=== PATIENT | male | born 1955 | race Caucasian/White ===

== ENCOUNTER → 2016-04-06 | Outpatient (CLI) | payer OTHER ==
[~2016-04-06] MED LIST: AMLO5TAB2 PO; ASPI-482 PO; ATOR40TA PO; BISO1TAB45 PO; BUDE10.2 IH; CLOP75TA PO; QUIN20TA PO; RIVA20TA2 PO; [UNRECOGNIZED DRUG - OTHER]
--- NOTE | 2016-04-07 07:22 | PAIN ---
DATE OF SERVICE: 04/06/2016 INITIAL CONSULTATION CHIEF COMPLAINT: Low back and left lower extremity pain. HISTORY OF PRESENT ILLNESS: This is a 60-year-old male who presents with history of pain for about 2 months, increasing without any specific injury or accident that he is aware of, but suddenly increased with pain where he could not hardly walk. The patient reports he went to bed one night, the pain was there and by the next day, it was much, much worse, he could hardly walk on his left leg, the pain across the back and into the hips. The patient reports it was much better with some steroid treatment. He took orally prednisone 50-100 mg for about a week and at time this helped significantly reduce the pain. The patient reports now the pain is a constant pain, it is throbbing and shooting with tingling and numbness in the left leg, mostly in the posterior gluteus, posterolateral thigh, posterior lower leg, anterior lower leg and into the sole of the foot on the left side. The patient reports his toes are normal on the left side, especially the great toe. There is tingling and twinging in the back and leg as well as a deep ache in the back itself. The patient reports no loss of motor function of the lower extremities, but significant fatigability with standing and walking, even for a few minutes with his left lower extremity. The patient reports it awakens him from sleep at night at least once or twice, does not affect his bowel or bladder control, but does affect his ability to walk significantly, is not using any assistive devices; however, to ambulate at this time. The patient did have an MRI scan of the lumbar spine see dated 03/12/2016 showing extensive multilevel lumbar spondylosis and severe left neural foraminal stenosis L5-S1 with impingement of the exiting left L5 nerve root due to focal disk protrusion at that level and diffuse disk bulges at L3-L4 and L4-L5 with mild right and moderate to severe medial left neural foraminal stenosis at L4-L5 due to left foraminal disk bulging and effacement of the exiting left L4 nerve root as well. The patient rates his disability rate of 0 to 10, 10 being the worst, is 7 with family and home responsibilities, recreation, occupation, social activities, sexual behavior and self-care and a 4 with life support activities. The patient has tried hydrocodone, which was not helpful for pain, the prednisone 50 mg did help the pain by about 75%. The patient has had no other therapies at this time and is doing some stretching and strengthening exercises on his own at home, but is not helping the pain very significantly. PAST MEDICAL HISTORY: Coronary artery disease, hypertension, irregular heart rhythm, recent cardioversion, stent placements in 08/2014, osteoarthritis. PREVIOUS SURGERY: Include only cardioversion, no actual open surgeries. CURRENT MEDICATIONS: Include Symbicort, amlodipine, Accupril, Xarelto, daily baby aspirin, clopidogrel, Lipitor and Ziac. ALLERGIES: THE PATIENT IS ALLERGIC TO ZYRTEC. FAMILY HISTORY: Significant for no major medical problems or conditions that he is aware of. SOCIAL HISTORY: The patient reports smoking half pack a day, continues to smoke for the past 30 years, infrequent alcohol use, less than once every 6 months or so. The patient works for the local [employer] and lives locally here in [place]. REVIEW OF SYSTEMS: The patient's review of systems is positive for those items mentioned in history of present illness. All systems reviewed and otherwise negative. It is complete, full and well documented on the patient's chart. PHYSICAL EXAMINATION: VITAL SIGNS: Today, the patient's blood pressure is 139/71, pulse is 54, respirations 18, temperature 98.1 degrees Fahrenheit. Height is 5 feet 11 inches, weighs 231 pounds. GENERAL: The patient is awake, alert, oriented, appropriate, very pleasant demeanor. HEENT: Head shows normocephalic, atraumatic. Extraocular movements are intact, symmetrical. The patient wears eyeglasses. Oral cavity, mucous membranes are moist and pink. NECK: Swallow reflex is symmetrical. Anterior throat supple without palpable lymphadenopathy noted. Neck shows full rotational motion of cervical spine, both laterally greater than 45 degrees as well as extension and forward flexion without difficulty. CHEST: Shows normal on inspection. Breath sounds are clear to auscultation bilaterally. HEART: Shows S1 and S2 clear. No murmurs are auscultated. ABDOMEN: Obese, soft, nontender, nondistended. No palpable organomegaly is noted on palpation. No rebound or guarding demonstrated. BACK: The patient's back shows spine grossly midline, normal-appearing thoracic kyphosis and lumbar lordotic curvature. No previous bruises, lesions, rashes or scars are noted. The patient's lumbar paraspinous muscle shows some moderate tenderness with palpation, but only diffusely in the upper, middle and lower distribution of paraspinous muscles bilaterally, slightly more on the left than the right, but symmetrical, no evidence of atrophy, hypertrophy, no trigger points, no tenderness over the spinous processes with palpation. No tenderness over the sacrum and sacroiliac regions with palpation. The patient shows good rotation and motion both laterally greater than 10 degrees right and left as well as extension greater than 10 degrees, forward flexion at 45 degrees without significant pain reported. EXTREMITIES: The patient's lower extremities showed deep tendon reflexes 1+ in the patellar and tendo calcaneus tendons are equal. Motor exam is strong with 5/5 dorsiflexion, extension, quadriceps and hamstring flexion and are symmetrical. Peripheral pulses are 1+ posterior tibial and dorsalis pedis pulses. No peripheral edema is noted. No clubbing, no cyanosis. Lower extremities are warm and dry to touch, equal in color and appearance. Straight leg raising noted to be positive on the left at about 40 degrees, decreased with knee flexion, but not completely relieved. Right side is negative. Gaenslen's and Harpreet's maneuvers are negative bilaterally as well. The patient is able to stand, stand on his toes without significant difficulty or loss of balance. He walks with a slight favoring the left lower extremity, not using any assistive devices; however, to ambulate. IMPRESSION: 1. This is a 60-year-old male with approximate 2-month history of increasing pain in low back, left lower extremity in a radicular fashion. 2. MRI scan as noted. 3. Hypertension. 4. Coronary artery disease. 5. Arthritis. PLAN: Options were discussed with the patient including conservative medical management, continued physical therapies, interventional technique. He would like to pursue interventional techniques. However, he is taking both Xarelto and Plavix. We will check with his residential sales rep to see if it is deemed safe and appropriate to hold these medications for 7 days prior to any neuraxial intervention as recommended by the drug manufacture. The patient will wait to hear back from his residential sales rep's office. We will contact the patient once we have notification if it is deemed safe and appropriate to hold and have him return for a lumbar epidural steroid injection at that time. The patient will follow up once this is determined and we will proceed at that time. CELSO PRABHAKAR MD DR: CJ/wander JOB#: [id number] / [id number] GILBERTO Valente
== END | disposition home or self-care (01) ==
LOC: PNCL 09:30
PROVIDERS: ATTEND Anesthesiology
DX: M54.5 Low back pain (principal); M79.605 Pain in left leg
CPT/HCPCS: 99214